=== PATIENT | female | born 1980 | race Two or more races ===

== ENCOUNTER 2019-01-26 00:44 | Emergency (ER) | payer SELFPAY ==
[~2019-01-26] VITALS: Ht 149.9 cm; Wt 66.0 kg
[2019-01-26 02:58] LABS: BASOPHILS % 0.6 % (0.0-2.0); EOSINOPHILS % 2.1 % (0.0-5.0); HEMATOCRIT. 34.4 % (36.0-48.0); HEMOGLOBIN. 11.8 g/dL (12.0-16.0); LYMPHOCYTES % 28.1 % (20.0-50.0); MEAN CORPUSCULAR HEMOGLOBIN 30.2 pg (28.0-32.0); MEAN CORPUSCULAR VOLUME 88.2 fL (81.0-99.0); MEAN PLATELET VOLUME 6.7 fl (7.4-10.4); MONOCYTES % 8.3 % (2.0-8.0); NEUTROPHILS % 60.9 % (40.0-76.0); PLATELET 382 x1000/uL (130-400)
[2019-01-26 03:06] LABS: CHLORIDE 107 mEq/L (98-107)
[2019-01-26 05:00] VITALS: BP 120/70
== END 2019-01-26 05:40 | disposition home or self-care (01) ==
LOC: EDBD 00:44 → ER 00:44
DX: J45.909 Unspecified asthma, uncomplicated (principal); Z88.1 Allergy status to other antibiotic agents; Z59.0 Homelessness
CPT/HCPCS: 36415; 71045; 80048; 81025; 99284